=== PATIENT | male | born 1960 | race Caucasian/White ===

== ENCOUNTER → 2020-06-24 09:37 | Outpatient (CLI) | payer BC, SELFPAY ==
--- NOTE | ~2020-06-24 | CT_ITS ---
EXAMINATION: CT sinus wo con EXAM DATE: 06/24/2020 10:03 INDICATION: Cough, chronic sinusitis. TECHNIQUE: Spiral CT of the sinuses was acquired in the axial plane. Coronal and sagittal reformatte d images were also reviewed. The dose-length product (DLP) for this examination was 280.89 mGy-cm. Iterative reconstruction (ASIR) was used as dose reduction technique. There is no prior study for co mparison. FINDINGS: The sinuses are normally developed. Small right anterior ethmoid mucous retention cyst. The sinuses are otherwise well aerated. The ostiomeatal units are patent. There is no sinus wall thickening. There is mild rightward nasal septal deviation anteriorly and leftward nasal septal dev iation posteriorly. The mastoid air cells and middle ears are well aerated. Some nonocclusive ceru men in both external auditory canals. The orbits and visualized soft tissues are unremarkable. IMPRESSION: Mild septal deviation. Reviewed, dictated and finalized at location A. IMPRESSION: Mild septal deviation.
== END ==
PROVIDERS: Visit Provider Allergy & Immunology
DX: J32.9 Chronic sinusitis, unspecified (principal); J34.2 Deviated nasal septum
CPT/HCPCS: 70486

== ENCOUNTER → 2020-10-19 11:40 | Outpatient (CLI) | payer BC, SELFPAY ==
--- NOTE | ~2020-10-19 | XR_ITS ---
EXAMINATION: XR chest 2V EXAM DATE: 10/19/2020 12:31 INDICATION: persistent cough x 1 year . TECHNIQUE: Frontal and lateral projections of the chest obtained and reviewed. Comparison is made to prior examination from 04/28/2016. FINDINGS: The lungs are clear. There are no pleural effusions. The cardiomediastinal silhouette is within normal limits. There is no pneumothorax suspected. The bones and soft tissues are unremarkab le. Mild to moderate chronic hyperinflation. IMPRESSION: Mild to moderate chronic hyperinflation. Reviewed, dictated and finalized at location B. TEGIC ADVISOR
== END ==
PROVIDERS: Visit Provider Family Medicine
DX: R05 Cough (principal); R91.8 Other nonspecific abnormal finding of lung field
CPT/HCPCS: 71046

== ENCOUNTER 2021-08-10 02:02 | Day surgery (SDC) | payer BC, SELFPAY ==
[2021-07-29 10:29] VITALS: BMI 27.1
[2021-08-10 10:45] VITALS: BP 149/85; PULSE 76; RESP 20; TEMP 36.4; O2SAT 99; BMI 26.8
[2021-08-10] MEDS: LACTATED RINGERS 1,000 ML 150 ML IV CONT (10:58)
--- NOTE | 2021-08-10 11:05 | WPDGICN ---
Assessment and Plan Assessment and plan (1) Encounter for screening colonoscopy: Code(s): Z12.11 - Encounter for screening for malignant neoplasm of colon Status: Acute Assessment and Plan: Patient presents for screening colonoscopy. Appears to be at average risk for colon polyps. GI Consult Note Consult date/time: 08/10/21 11:05 HPI: Shin Alvarez is a 61 year old male Presents for screening colonoscopy. Patient reports his current weight appetite bowel movements are normal. He denies abdominal pain. He has had no bleeding. Family history is noncontributory. Last colonoscopy 2006 was essentially unremarkable. Plan to proceed with screening colonoscopy at this time. Review of Systems Review of Systems: All systems reviewed & are unremarkable except as noted in HPI and below PMFSH Past Medical History Medical History (Updated 08/10/21 @ 11:06 by French Curiel MD) Asthma Hyperlipidemia Hypertension Social History Social History Smoking status: Never smoker Alcohol intake: current Drinks per week: 2 Living arrangements: with family Spiritual care concerns: No Meds Home Medications and Allergies Home Medications Medication Instructions Recorded Confirmed Type atorvastatin 10 mg PO DAILY 07/29/21 07/29/21 History losartan 25 mg PO DAILY 07/29/21 07/29/21 History Allergies Allergy/AdvReac Type Severity Reaction Status Date / Time mold Allergy Unknown Other Verified 08/10/21 10:44 house dust Allergy Other Verified 08/10/21 10:44 Vital Signs Vital Signs - 24 hr 08/10/21 10:45 Temperature 97.6 F Pulse Rate 76 Respiratory Rate 20 Blood Pressure 149/85 H Pulse Oximetry 99 Exam Narrative: Physical exam reveals patient be alert. Vital signs stable. HEENT exam is unremarkable. Patient is anicteric. Lungs are clear to auscultation and percussion. Heart is without murmur or extra sounds. Abdominal exam bowel sounds present soft nontender with no organomegaly. Digital external rectal exam is normal.
--- NOTE | 2021-08-10 11:09 | P.PNAN_ITS ---
Anes - Initial Pre Proc Eval Procedure: Operation Date: 08/10/21 12:00 Proposed Procedures p Screening Colonoscopy - French Curiel MD Date/Time: 08/10/21 11:09 Surgeon: French Curiel MD Pre Op Diagnosis: neoplasm screening Patient Data Age: 61 Gender: M Height: 1.83 m Weight: 89.6 kg Last Vital Signs Temp 97.6 F 08/10/21 10:45 Pulse 76 08/10/21 10:45 Resp 20 08/10/21 10:45 BP 149/85 H 08/10/21 10:45 Pulse Ox 99 08/10/21 10:45 Allergies Allergy/AdvReac Type Severity Reaction Status Date / Time mold Allergy Unknown Other Verified 08/10/21 10:44 house dust Allergy Other Verified 08/10/21 10:44 Home Medications Medication Instructions Recorded Confirmed Type atorvastatin 10 mg PO DAILY 07/29/21 07/29/21 History losartan 25 mg PO DAILY 07/29/21 07/29/21 History Patient hx anesthesia problems: none Family hx anesthesia problems: none [facility] Past Medical History Medical History (Updated 08/10/21 @ 11:06 by French Curiel MD) Asthma Hyperlipidemia Hypertension Social History Social History Smoking status: Never smoker Alcohol intake: current Drinks per week: 2 Living arrangements: with family Spiritual care concerns: No Anes - Eval Final PreProcedure Day of Procedure 08/10/21 11:09 Patient weight: overweight Heart: regular rate and rhythm Lungs: clear to auscultation Airway: Mallampati scale class II Neurological: alert and oriented Last oral intake: >/= 8 hours ASA classification: II Emergent: no Anesthetic plan: proceed Anesthesia type and monitoring: general GIVS and standard monitoring Informed Consent: The patient's anesthetic plan and its attendant risks and benefits were discussed with the patient/family/POA. Questions were solicited and answers provided to the satisfaction of the patient/family/POA.
--- NOTE | 2021-08-10 11:22 | SUR.OPER ---
cecal time 1122
[2021-08-10 11:36] VITALS: BP 100/74; PULSE 65; RESP 20; O2SAT 95
[2021-08-10 11:46] VITALS: BP 116/80; PULSE 61; RESP 19; O2SAT 99
[2021-08-10 11:56] VITALS: BP 132/86; PULSE 62; RESP 20; O2SAT 99
== END 2021-08-10 11:57 | disposition home or self-care (01) ==
PROVIDERS: PCP Family Medicine; Visit Provider Internal Medicine Gastroenterology
PROC: 0DJD8ZZ Inspection of Lower Intestinal Tract, Via Natural or Artificial Opening Endoscopic (ICD-10-PCS; CPT 45378; principal; 2021-08-10 12:00)
DX: Z12.11 Encounter for screening for malignant neoplasm of colon (principal); K63.5 Polyp of colon; K64.8 Other hemorrhoids; J45.909 Unspecified asthma, uncomplicated; E78.5 Hyperlipidemia, unspecified
CPT/HCPCS: 45385; 88305; J2001; J2704; J7120